=== PATIENT | male | born 1960 | race Caucasian/White ===

== ENCOUNTER 2018-03-25 18:13 | Emergency (ER) | payer BC ==
[~2018-03-25] VITALS: Ht 180.3 cm; Wt 117.9 kg
--- NOTE | 2018-03-25 18:53 | NUR ---
MD is at bedside evaluating the patient, pending MD orders@this time
[2018-03-25] MEDS ORDERED: ONDANSETRON 4 MG/2 ML VIAL ONE (19:04)
[2018-03-25] MEDS ORDERED: PANTOPRAZOLE SODIUM 40 MG VIAL ONE (19:04)
[2018-03-25] MEDS: ONDANSETRON IV *ER 4 MG/2 ML VIAL IV ONE (19:07)
[2018-03-25] MEDS: PANTOPRAZOLE SODIUM 40 MG VIAL IV ONE (19:09)
--- NOTE | 2018-03-25 19:10 | NUR ---
GERDAAR to [facility]ERR[facility] Neely, pt is for blood draw, EKG & monitors at this time
[2018-03-25] MEDS: IV NS 1000 ML 1,000 ML IV ONE (19:19)
[2018-03-25 19:22] LABS: BASOPHILS % (AUTO) 0.5 % (0.0-2.0); EOSINOPHILS # (AUTO) 0.2 K/uL (0.0-0.7); HEMOGLOBIN 15.7 g/dL (12.5-16.3); LYMPHOCYTES # (AUTO) 2.6 K/uL (20.0-40.0); LYMPHOCYTES % (AUTO) 28.5 % (20.5-51.5); MEAN CORPUSCULAR HEMOGLOBIN 31.7 uug (23.8-33.4); MEAN CORPUSCULAR HGB CONC 34 g/dL (32.5-36.3); MEAN CORPUSCULAR VOLUME 93.1 fL (73.0-96.2); MONOCYTES # (AUTO) 0.7 K/uL (2.0-10.0); MONOCYTES % (AUTO) 7.1 % (0.0-11.0); NEUTROPHILS # (AUTO) 5.7 K/uL (1.8-8.9); NEUTROPHILS % (AUTO) 61.9 % (38.5-71.5); PLATELET COUNT (AUTO) 180 K/uL (152-348); RED BLOOD CELL COUNT(AUTO) 4.94 MIL/uL (4.06-5.63); WHITE BLOOD COUNT (AUTO) 9.3 K/uL (3.6-10.2)
[2018-03-25 19:30] LABS: CREATININE 1.3 mg/dL (0.6-1.3); POTASSIUM 4.2 mmol/L (3.5-5.1)
[2018-03-25 19:37] LABS: BILIRUBIN,TOTAL 0.5 mg/dL (0.2-1.0)
[2018-03-25] MEDS ORDERED: IV NORMAL SALINE 250 ML IV ONE (19:59)
[2018-03-25] MEDS ORDERED: IOHEXOL 300MG/ML 100 ML INFUS..BTL ONE (19:59)
[2018-03-25] MEDS ORDERED: NORMAL SALINE FLUSH 10 ML DISP.SYRIN ONE (19:59)
[2018-03-25] MEDS ORDERED: SWABABLE VALVE TRANSFER SET EA MC ONE (19:59)
--- NOTE | 2018-03-25 20:15 | NUR ---
PT IN ROUTE TO CT IN [facility] WITH TRANSPORTER
[2018-03-25 20:20] LABS: *BILIRUBIN,URIN NEGATIVE (NEGATIVE); *BLOOD, URINE Trace-intact (NEGATIVE); *CLARITY,URINE CLEAR (CLEAR); *COLOR,URINE YELLOW (YELLOW); *KETONES,URINE NEGATIVE (NEGATIVE); *PROTEIN,URINE NEGATIVE (NEGATIVE); *UROBILINOGEN,URINE 0.2 E.U./dl (NORMAL); LEUKOCYTE ESTERASE ,URINE NEGATIVE (NEGATIVE); NITRITE, URINE NEGATIVE (NEGATIVE); PH,URINE 5.5 (5.0-8.0); UGLUCOSE NEGATIVE (NEGATIVE)
[2018-03-25 20:26] LABS: MUCUS,URINE MODERATE /LPF (0-FEW); WBC,URINE 0-3 /HPF (0-3)
--- NOTE | 2018-03-25 20:30 | NUR ---
PT RETURNS FROM CT IN [facility] W/ SHARDA
--- NOTE | 2018-03-25 21:02 | NUR ---
PERIPHERAL IV REMOVED DUE TO INFILTRATION WHILE NS FLUID WAS RUNNING. MADE AWARE. NO IV INFILTRATION WAS NOTED UPON RETURN FROM [facility].
--- NOTE | 2018-03-25 21:35 | NUR ---
Patient discharged to home in stable conditon. Written and verbal after care instructions given. Patient verbalizes understanding of instructions. Patient able to ambulate unassisted with a steady gait. Peripheral IV was removed. Patient left with all personal belongings.
[2018-03-25 22:01] VITALS: BP 116/77
== END 2018-03-25 21:35 | disposition home or self-care (01) ==
LOC: ER 18:15
DX: R10.84 Generalized abdominal pain (principal); M46.04 Spinal enthesopathy, thoracic region
CPT/HCPCS: 36415; 70030-TC; 71045; 83690; 85025; 85610; 86677; 93005; A4663; C9113; J2405; J3490; J7030; J7050; Q9967

== ENCOUNTER 2019-08-02 11:43 | Emergency (ER) | payer BC, OTHER ==
[~2019-08-02] VITALS: Ht 180.3 cm; Wt 120.2 kg
[2019-08-02] MEDS ORDERED: KETOROLAC TROMETHAMINE 15 MG INJ IM ONE (12:00)
[2019-08-02] MEDS ORDERED: KETOROLAC TROMETHAMINE 15 MG INJ ONE (12:00)
[2019-08-02 12:26] LABS: CREATININE 1.3 mg/dL (0.6-1.3); POTASSIUM 4.2 mmol/L (3.5-5.1)
[2019-08-02 12:37] LABS: BASOPHILS % (AUTO) 0.4 % (0.0-2.0); EOSINOPHILS # (AUTO) 0.2 K/uL (0.0-0.7); EOSINOPHILS % (AUTO) 2.8 % (0.0-7.0); HEMATOCRIT 49.1 % (36.7-47.1); HEMOGLOBIN 16.1 g/dL (12.5-16.3); LYMPHOCYTES # (AUTO) 2.6 K/uL (20.0-40.0); LYMPHOCYTES % (AUTO) 31.4 % (20.5-51.5); MEAN CORPUSCULAR HGB CONC 33 g/dL (32.5-36.3); MEAN CORPUSCULAR VOLUME 91.7 fL (73.0-96.2); MONOCYTES # (AUTO) 0.6 K/uL (2.0-10.0); MONOCYTES % (AUTO) 7.5 % (0.0-11.0); NEUTROPHILS # (AUTO) 4.8 K/uL (1.8-8.9); NEUTROPHILS % (AUTO) 57.9 % (38.5-71.5); PLATELET COUNT (AUTO) 205 K/uL (152-348); RED BLOOD CELL COUNT(AUTO) 5.35 MIL/uL (4.06-5.63); WHITE BLOOD COUNT (AUTO) 8.2 K/uL (3.6-10.2)
--- NOTE | 2019-08-02 13:07 | NUR ---
Patient discharged to home in stable conditon. Written and verbal after care instructions given. Patient verbalizes understanding of instructions.
== END 2019-08-02 13:07 | disposition home or self-care (01) ==
LOC: ER 11:45
DX: M25.522 Pain in left elbow (principal); M25.571 Pain in right ankle and joints of right foot; M25.561 Pain in right knee; M25.511 Pain in right shoulder
CPT/HCPCS: 36415; 80048; 85025; 96372; 99283; J1885; A4663